=== PATIENT | male | born 1980 | race Two or more races ===

== ENCOUNTER 2019-09-18 16:50 | Outpatient (CLI) | payer OTHER | END 2019-09-18 16:54 | disposition home or self-care (01) | LOC: RAD 16:50 | PROVIDERS: ATTEND General Practice | DX: R05 Cough (principal) ==

== ENCOUNTER 2021-09-26 06:51 | Emergency (ER) | payer OTHER ==
[~2021-09-26] VITALS: Ht 167.6 cm; Wt 136.1 kg
== END 2021-09-26 10:33 | disposition home or self-care (01) ==
LOC: ER 06:51
DX: U07.1 COVID-19 (principal)

== ENCOUNTER 2022-03-23 16:07 | Outpatient (CLI) | payer OTHER | END 2022-03-23 20:20 | disposition home or self-care (01) | LOC: LAB 16:07 | PROVIDERS: ATTEND Internal Medicine | DX: D64.9 Anemia, unspecified (principal); E11.9 Type 2 diabetes mellitus without complications; E78.00 Pure hypercholesterolemia, unspecified; N39.0 Urinary tract infection, site not specified; E03.8 Other specified hypothyroidism; R80.8 Other proteinuria; N18.31 Chronic kidney disease, stage 3a; R19.5 Other fecal abnormalities; Z12.11 Encounter for screening for malignant neoplasm of colon; E55.9 Vitamin D deficiency, unspecified; N40.0 Benign prostatic hyperplasia without lower urinary tract symptoms ==

== ENCOUNTER 2022-03-25 08:57 | Emergency (ER) | payer OTHER ==
[~2022-03-25] VITALS: Ht 167.6 cm; Wt 129.3 kg
[2022-03-25] MEDS ORDERED: NIFEDIPINE ER60 MG PO (19:16)
[2022-03-25] MEDS ORDERED: TOPROL XL50 M1 PO (19:17)
== END 2022-03-25 19:41 | disposition home or self-care (01) ==
LOC: ER 08:57
DX: I10 Essential (primary) hypertension (principal)

== ENCOUNTER → 2022-03-29 14:15 | Outpatient (CLI) | payer OTHER ==
[~2022-03-29 14:15] MED LIST: NIFEDIPINE ER60 MG PO; TOPROL XL50 M1 PO
== END | disposition home or self-care (01) ==
LOC: LAB 14:15
PROVIDERS: ATTEND Internal Medicine
DX: D64.9 Anemia, unspecified (principal); E11.9 Type 2 diabetes mellitus without complications; E78.00 Pure hypercholesterolemia, unspecified; N39.0 Urinary tract infection, site not specified; E03.8 Other specified hypothyroidism; N18.31 Chronic kidney disease, stage 3a; R19.5 Other fecal abnormalities; Z12.11 Encounter for screening for malignant neoplasm of colon; E55.9 Vitamin D deficiency, unspecified; N40.0 Benign prostatic hyperplasia without lower urinary tract symptoms

== ENCOUNTER 2022-04-07 10:08 | Outpatient (CLI) | payer OTHER | END 2022-04-07 10:15 | disposition home or self-care (01) | LOC: NUCLEAR 10:08 | PROVIDERS: ATTEND Internal Medicine | DX: I83.92 Asymptomatic varicose veins of left lower extremity (principal) ==

== ENCOUNTER 2022-04-11 17:49 | Emergency (ER) | payer OTHER ==
[~2022-04-11] VITALS: Ht 167.6 cm; Wt 127.0 kg
[2022-04-11] MEDS ORDERED: NIFEDIPINE20 MG PO (18:57)
[2022-04-11] MEDS ORDERED: NIFE60TA3 PO (18:58)
== END 2022-04-11 21:07 | disposition home or self-care (01) ==
LOC: ER 17:49
DX: G44.209 Tension-type headache, unspecified, not intractable (principal); Z88.7 Allergy status to serum and vaccine; Z88.6 Allergy status to analgesic agent

== ENCOUNTER 2023-09-29 18:52 | Emergency (ER) | payer OTHER ==
[~2023-09-29] VITALS: Ht 165.1 cm; Wt 135.2 kg
[~2023-09-29 18:52] MED LIST changes: +NIFE60TA3 PO; +NIFEDIPINE20 MG PO
[2023-09-29] MEDS ORDERED: METHYLPREDNISOLONE SOD SUCC 125 MG VIAL IV ONE (20:45)
[2023-09-29] MEDS ORDERED: IPRATROPIUM/ALBUTEROL SULFATE 3 ML AMPUL.NEB IH ONE ×2 (20:45→21:09)
[2023-09-29] MEDS ORDERED: GUAIFENESIN/DEXTROMETHORPHAN 10ML BLIST.PACK PO ONE (20:45)
[2023-09-29] MEDS ORDERED: METHYLPREDNISOLONE SOD SUCC 125 MG VIAL ONE ×2 (21:07→21:48)
[2023-09-29] MEDS ORDERED: GUAIFEN/DEXTROMETHORPHAN/PE 10 ML BLIST.PACK PO ONE (21:07)
[2023-09-29 22:11] LABS: HEMOGLOBIN 13.9 g/dL (13-16.00); MEAN CELL VOLUME 82.2 fL (80.0-100.00); MEAN CORPUSCULAR HEMOGLOBIN 26.6 pg (27.00-32.0); MEAN CORPUSCULAR HGB CONC 32.4 g/dl (32.0-36.0); PLATELET COUNT 223 K/uL (150-450); RED BLOOD COUNT 5.22 M/uL (4.00-6.00)
[2023-09-29 22:25] LABS: ABG PH 7.418 (7.35-7.45); ABG PO2 103.3 mmHg (80-100); ABG pCO2 42.6 mmHg (35-45); BASE EXCESS 2.1 mmol/l; BICARBONATE 26.9 mmol/l (23-25); SaO2 98.1 %; Tco2 28.2 mmol/l; allen test SATISFACTORY; o2 21 %; puncture site RADIAL LEFT
[2023-09-29] MEDS ORDERED: QC TUSSIN DM L118 ML PO (23:37)
[2023-09-29] MEDS ORDERED: BUDESONIDE0.5 MG/21 IH (23:37)
[2023-09-29] MEDS ORDERED: ALBUTEROL1.25 MG/3 IH (23:37)
== END 2023-09-30 00:22 | disposition home or self-care (01) ==
LOC: ER 18:53
PROVIDERS: Nurse Practitioner Family
DX: J06.9 Acute upper respiratory infection, unspecified (principal); T59.891A Toxic effect of other specified gases, fumes and vapors, accidental (unintentional), initial encounter; Y92.89 Other specified places as the place of occurrence of the external cause; Z88.8 Allergy status to other drugs, medicaments and biological substances; J00 Acute nasopharyngitis [common cold]; Z20.822 Contact with and (suspected) exposure to COVID-19